=== PATIENT | female | born 2000 | race Two or more races ===

== ENCOUNTER 2021-01-11 22:48 | Emergency (ER) | payer MEDICAID ==
[~2021-01-11] VITALS: Ht 157.5 cm; Wt 53.0 kg
[2021-01-11 23:46] LABS: BASOPHILS % 0.3 % (0.0-2.0); EOSINOPHILS % 1.3 % (0.0-5.0); HEMATOCRIT. 38.7 % (36.0-48.0); HEMOGLOBIN. 12.8 g/dL (12.0-16.0); LYMPHOCYTES % 28.3 % (20.0-50.0); MEAN CORPUSCULAR VOLUME 90.4 fL (81.0-99.0); MEAN PLATELET VOLUME 9.4 fl (7.4-10.4); MONOCYTES % 10.4 % (2.0-8.0); NEUTROPHILS % 59.7 % (40.0-76.0); PLATELET 290 x1000/uL (130-400); RED BLOOD CELL COUNT 4.27 mill/uL (4.2-5.4)
[2021-01-11 23:51] LABS: CHLORIDE 105 mEq/L (98-107)
[2021-01-11 23:55] LABS: CLARITY URINE CLEAR (CLEAR); COLOR URINE YELLOW (YELLOW); KETONES URINE NEGATIVE (NEGATIVE); LEUKOCYTE ESTERASE URINE TRACE (NEGATIVE); NITRITE URINE POSITIVE (NEGATIVE); OCCULT BLOOD URINE NEGATIVE (NEGATIVE); PROTEIN URINE NEGATIVE (NEGATIVE); SPECIFIC GRAVITY URINE 1.015 (1.005-1.030); UROBILINOGEN URINE 0.2 E.U./dL (0.2-1.0)
[2021-01-12 00:02] LABS: B-HCG QUANTITATIVE 417 mIU/mL (<3)
[2021-01-12] MEDS ORDERED: ACETAMINOPHEN 325MG TABLET PO ONE (01:15)
[2021-01-12] MEDS ORDERED: NITR-87 MT (01:34)
[2021-01-12 03:00] VITALS: BP 122/68
== END 2021-01-12 03:17 | disposition home or self-care (01) ==
LOC: ER 22:48
DX: O20.0 Threatened abortion (principal); O23.40 Unspecified infection of urinary tract in pregnancy, unspecified trimester; Z3A.00 Weeks of gestation of pregnancy not specified
CPT/HCPCS: 36415; 76830; 76856; 80053; 81003; 81025; 84702; 85025; 86850; 86900; 93005; 99285

== ENCOUNTER 2021-09-24 16:47 | Emergency (ER) | payer MEDICAID ==
[~2021-09-24] VITALS: Ht 160 cm; Wt 75.0 kg
[2021-09-24 20:15] VITALS: BP 121/82
== END 2021-09-24 20:20 | disposition home or self-care (01) ==
LOC: ER 16:47
DX: Z48.02 Encounter for removal of sutures (principal); Z98.890 Other specified postprocedural states
CPT/HCPCS: 99281